=== PATIENT | female | born 1955 | race Caucasian/White ===

== ENCOUNTER 2018-10-27 08:31 | Emergency (ER) | payer MEDICARE, OTHER ==
[2018-10-27 08:48] VITALS: BP 148/67
--- NOTE | 2018-10-27 08:52 | EDM.PDOC ---
ED HPI GENERAL MEDICAL PROBLEM - General Chief Complaint: Back Pain or Injury Stated Complaint: SEVERE BACK PAIN, NAUSEA Time Seen by Provider: 10/27/18 08:48 Source of Information: Reports: Patient, RN, RN Notes Reviewed History Limitations: Reports: No Limitations - History of Present Illness INITIAL COMMENTS - FREE TEXT/NARRATIVE: Pt presents to ER from home by POV with c/o sudden onset of sharp middle-upper back pain that woke her from sleep on Monday morning (10/24/18). The pain has persisted, but is now a dull ache. Pt denies fall, lifting, twisting, or any injury. She rates the pain 5/10. Nothing alleviates the pain. The pain is aggravated by movement. Onset: Sudden Onset Date: 10/24/18 Duration: Constant Location: Reports: Back Quality: Reports: Ache, Dull Severity: Moderate Associated Symptoms: Reports: No Other Symptoms Back Pain Score (Numeric/FACES): 5 - Related Data Allergies Allergy/AdvReac Type Severity Reaction Status Date / Time No Known Allergies Allergy Verified 10/27/18 08:41 Home Meds: Home Meds Levothyroxine Sodium 112 mcg PO DAILY 08/22/15 [History] Pantoprazole Sodium 40 mg PO DAILY 08/22/15 [History] Sertraline HCl 100 mg PO DAILY 08/22/15 [History] Alendronate Sodium [Fosamax] 70 mg PO WEEKLY 10/27/18 [History] traZODone HCl [Trazodone HCl] 50 mg PO BEDTIME 10/27/18 [History] Past Medical History Cardiovascular History: Reports: High Cholesterol Gastrointestinal History: Reports: GERD Genitourinary History: Reports: Renal Calculus Endocrine/Metabolic History: Reports: Hypothyroidism, Obesity/BMI 30+ Social & Family History - Family History Family Medical History: Noncontributory - Living Situation & Occupation Living situation: Reports: with Family ED ROS GENERAL - Review of Systems Review Of Systems: ROS reveals no pertinent complaints other than HPI. ED EXAM, UPPER BACK/NECK PAIN - Physical Exam Exam: See Below Exam Limited By: No Limitations General Appearance: Alert, WD/WN, No Apparent Distress, Obese Throat/Mouth Exam: Normal Inspection, Normal Voice, No Airway Compromise Head Exam: Atraumatic, Normocephalic Neck Exam: Non-Tender, Full Range of Motion, Normal Alignment, Normal Inspection Cardiovascular/Respiratory: Regular Rate, Rhythm, No M/R/G, Normal Peripheral Pulses, No JVD, Normal Breath Sounds, No Respiratory Distress GI/Abdominal: Normal Bowel Sounds, Soft, Non-Tender, No Organomegaly, No Distention, No Abnormal Bruit, No Mass (Female) Exam: Deferred Rectal (Female) Exam: Deferred Back Exam: Normal Inspection, Full Range of Motion. No: Vertebral Tenderness Extremities: Normal Inspection Neurologic: No Motor/Sensory Deficits, Alert, Normal Mood/Affect, Oriented x 3 Psychiatric: Normal Affect, Normal Mood Skin Exam: Normal Color, Warm/Dry EKG INTERPRETATION EKG Date: 10/27/18 Time: 08:50 Rhythm: Other (SR) Rate (Beats/Min): 70 [place]: Normal P-Wave: Present QRS: Other (abnml R wave progression in V2) ST-T: Normal QT: Normal Comparison: NA - No Prior EKG Course - Vital Signs Last Recorded V/S: Last Vital Signs Temp 36.2 C 10/27/18 08:44 Pulse 98 10/27/18 08:44 Resp 16 10/27/18 08:44 BP 148/67 H 10/27/18 08:44 Pulse Ox 98 10/27/18 08:44 - Orders/Labs/Meds Orders: Active Orders 24 hr Category Date Time Status EKG 12 Lead [EKG Documentation Completion] [RC] STAT Care 10/27/18 08:54 Active CULTURE URINE [RM] Stat Lab 10/27/18 08:45 Received Labs: Laboratory Tests 10/27/18 10/27/18 10/27/18 Range/Units 08:45 09:11 09:11 WBC 3.7 L (5.0-10.0) 10^3/uL RBC 5.18 (4.2-5.4) 10^6/uL Hgb 14.9 (12.0-16.0) g/dL Hct 43.7 (37.0-47.0) % MCV 84.4 (80-100) fL MCH 28.8 (27.0-34.0) pg MCHC 34.1 (33.0-35.0) g/dL Plt Count 235 (150-450) 10^3/uL Neut % (Auto) 52.2 (42.2-75.2) % Lymph % (Auto) 36.1 (20.5-50.1) % [place] % (Auto) 8.3 H (2-8) % Eos % (Auto) 2.9 (1.0-3.0) % Baso % (Auto) 0.5 (0.0-1.0) % Sodium 139 (135-145) mmol/L Potassium 3.8 (3.6-5.0) mmol/L Chloride 106 (101-111) mmol/L Carbon Dioxide 23.0 (21.0-31.0) mmol/L Anion Gap 13.8 BUN 17 (7-18) mg/dL Creatinine 0.9 (0.6-1.3) mg/dL Est Cr Clr Drug Dosing 58.34 mL/min Estimated GFR (MDRD) > 60 BUN/Creatinine Ratio 18.88 Glucose 106 H (74-105) mg/dL Calcium 9.6 (8.4-10.2) mg/dl Total Bilirubin 0.9 (0.2-1.0) mg/dL AST 26 (10-42) IU/L ALT 20 (10-60) IU/L Alkaline Phosphatase 61 (42-121) IU/L Total Protein 7.6 (6.7-8.2) g/dl Albumin 4.2 (3.2-5.5) g/dl Globulin 3.4 Albumin/Globulin Ratio 1.24 Amylase 49 (28-100) U/L Lipase 46 (22-51) U/L Urine Color Yellow (YELLOW) Urine Appearance Slightly cloudy (CLEAR) Urine pH 5.0 (5.0-9.0) Ur Specific [place] >= 1.030 (1.005-1.030) Urine Protein Negative (NEGATIVE) Urine Glucose (UA) Negative (NEGATIVE) Urine Ketones Negative (NEGATIVE) Urine Occult Blood Trace-intact H (NEGATIVE) Urine Nitrite Negative (NEGATIVE) Urine Bilirubin Small H (NEGATIVE) Urine Urobilinogen 0.2 (0.2-1.0) mg/dL Ur Leukocyte Esterase Small H (NEGATIVE) Urine RBC 0-5 /HPF Urine WBC 5-10 H (0-5/HPF) /HPF Ur Epithelial Cells Few /HPF Calcium Oxalate Crystal Moderate H /HPF Urine Bacteria Few (0-FEW/HPF) /HPF Urine Mucus Moderate H /LPF - Radiology Interpretation Free Text/Narrative:: CT Abd/Pelvis: gallstone without signs cholecystitis, stone in left kidney, see Rad. report. Departure - Departure Time of Disposition: 10:51 Disposition: Home, Self-Care 01 Condition: Good Clinical Impression: Renal calculus, left Acute thoracic back pain Qualifiers: Back pain laterality: unspecified Qualified Code(s): M54.6 - Pain in thoracic spine Cholelithiasis Qualifiers: Cholelithiasis location: gallbladder Cholecystitis presence: without cholecystitis Biliary obstruction: without biliary obstruction Qualified Code(s) : K80.20 - Calculus of gallbladder without cholecystitis without obstruction - Discharge Information *PRESCRIPTION DRUG MONITORING PROGRAM REVIEWED*: No *COPY OF PRESCRIPTION DRUG MONITORING REPORT IN PATIENT DOLLY: No Instructions: Cholelithiasis Forms: ED Department Discharge Additional Instructions: Rx: Zofran 4mg Rx: [place] 5mg/325mg *Do not drive while under the influence of this medication. Follow up in clinic next week for further gallbladder evaluation. - My Orders Last 24 Hours: My Active Orders 10/27/18 08:45 CULTURE URINE [RM] Stat 10/27/18 08:54 EKG 12 Lead [EKG Documentation Completion] [RC] STAT - Assessment/Plan Last 24 Hours: My Active Orders 10/27/18 08:45 CULTURE URINE [RM] Stat 10/27/18 08:54 EKG 12 Lead [EKG Documentation Completion] [RC] STAT
[2018-10-27 09:37] LABS: ANION GAP 13.8; CHLORIDE,CL 106 mmol/L (101-111); SODIUM,NA 139 mmol/L (135-145)
--- NOTE | 2018-10-27 10:41 | CT ---
Clinical history: 63-year-old female with left flank/ back pain and hematuria. Reported July 2015 to have "cholelithiasis, calcified uterine fibroid, and appendicitis". Reevaluate and rule out urolithiasis please. Scan technique: Volume acquisition of data emergency unenhanced CT scan of the abdomen and pelvis (kidneys/ureters/bladder) obtained while the patient was lying supine on the Siemens multi slice scanner [place], [place]. All data archived in the PACS system for storage, reformatting axial/sagittal/coronal planes and study. Interpretation: 1. Isolated tiny 2 mm diameter calculus lower pole calyx left kidney. No sign of other renal stones or of obstructive uropathy i.e. no highly caliectasis or ureterectasis evident. Urinalysis? No solid or cystic renal cortical mass lesion (unenhanced exam). 2. Symmetric distended urinary bladder without intraluminal calcification. 3. Several tiny calcifications in the gallbladder (RUQ) and density calcified myomatous fibroid mass posterior fundus of uterus. 4. A few diverticula scattered in the sigmoid and descending left colon without current signs of inflammation. No pelvic or abdominal mass lesion, mesenteric or retroperitoneal lymphadenopathy, signs of mechanical bowel obstruction, ascites or free intraperitoneal air (surgical clips RLQ.). Normal appearance terminal ileum. 5. Normal caliber aortoiliac vessels. Scattered calcifications but no aneurysm or dissection. 6. Osteopenia. Mild scoliosis, apparent old insufficiency fracture T9 vertebra, and chronic mid lumbar disc disease i.e. joint space narrowing, dense U herniation and hypertrophic marginal spondylosis L3-4 level). No other fracture or dislocation. 7. Extradural midline trouser zipper anteriorly and several foreign bodies in the left pocket. Unenhanced liver, stomach, spleen, pancreas and adrenal glands unremarkable. No ventral wall or a hernias. CONCLUSION: Nephrolithiasis left kidney (lower pole calyx) without signs of obstructive uropathy. Appendectomy. Cholelithiasis and calcified uterine fibroid. Diverticulosis left colon. Lumbar L3-4 disc disease. Arteriovascular calcifications.
== END 2018-10-27 11:08 | disposition home or self-care (01) ==
LOC: DL.ED 08:31
DX: K80.20 Calculus of gallbladder without cholecystitis without obstruction (principal); N20.0 Calculus of kidney; E78.00 Pure hypercholesterolemia, unspecified; E03.9 Hypothyroidism, unspecified; K21.9 Gastro-esophageal reflux disease without esophagitis; Z79.899 Other long term (current) drug therapy
CPT/HCPCS: 36415; 74176; 80053; 81001; 82150; 83690; 85025; 87086; 93005; 99284-25

== ENCOUNTER 2022-01-31 05:31 | Day surgery (SDC) | payer MEDICARE, OTHER ==
[2022-01-31] MEDS ORDERED: fentaNYL 100 MCG/2 ML SDV IV ONE (05:32)
[2022-01-31] MEDS ORDERED: Midazolam 1 MG/ML 2 ML SDV IV ONE (05:32)
[2022-01-31] MEDS ORDERED: Dextrose 5%-0.45% NaCl 1,000 ML IV SCH (06:00)
[2022-01-31] MEDS ORDERED: Sodium Chloride 0.9% 10 ML Syringe FLUSH PRN (06:00)
[2022-01-31 08:40] VITALS: PULSE 54
[2022-01-31 08:46] VITALS: BP 108/63
[2022-01-31] MEDS ORDERED: Sodium Chloride 0.9% 10 ML Syringe FLUSH SCH (09:00)
== END 2022-01-31 08:45 | disposition home or self-care (01) ==
LOC: DL.ENDO 05:31
PROVIDERS: ATTEND Internal Medicine Gastroenterology
DX: K22.2 Esophageal obstruction (principal); K31.89 Other diseases of stomach and duodenum; K31.819 Angiodysplasia of stomach and duodenum without bleeding; E66.09 Other obesity due to excess calories; E03.9 Hypothyroidism, unspecified; E78.5 Hyperlipidemia, unspecified; M81.0 Age-related osteoporosis without current pathological fracture; K21.9 Gastro-esophageal reflux disease without esophagitis; F41.1 Generalized anxiety disorder; F32.9 Major depressive disorder, single episode, unspecified; Z90.49 Acquired absence of other specified parts of digestive tract; Z98.890 Other specified postprocedural states; Z68.30 Body mass index [BMI] 30.0-30.9, adult
CPT/HCPCS: 00731; 87077; 88305; J2250; J3010; J7042